=== PATIENT | female | born 1960 | race Two or more races ===

== ENCOUNTER 2020-05-26 03:47 | Emergency (ER) | payer SELFPAY ==
[~2020-05-26] VITALS: Ht 154.9 cm; Wt 63.0 kg
[2020-05-26] MEDS ORDERED: IBUPROFEN 600MG TABLET PO STA (04:54)
[2020-05-26 05:45] LABS: BASOPHILS % 0.5 % (0.0-2.0); EOSINOPHILS % 0.4 % (0.0-5.0); HEMATOCRIT. 44.4 % (36.0-48.0); HEMOGLOBIN. 14.8 g/dL (12.0-16.0); LYMPHOCYTES % 22.7 % (20.0-50.0); MEAN CORPUSCULAR HEMOGLOBIN 27.7 pg (28.0-32.0); MEAN CORPUSCULAR VOLUME 83.1 fL (81.0-99.0); MEAN PLATELET VOLUME 7.5 fl (7.4-10.4); MONOCYTES % 7.2 % (2.0-8.0); NEUTROPHILS % 69.2 % (40.0-76.0); PLATELET 260 x1000/uL (130-400); RED BLOOD CELL COUNT 5.34 mill/uL (4.2-5.4); RED CELL DISTRIBUTION WIDTH 14.8 % (11.6-14.6)
[2020-05-26 05:51] LABS: CHLORIDE 110 mEq/L (98-107)
[2020-05-26 08:13] VITALS: BP 140/77
== END 2020-05-26 08:15 | disposition home or self-care (01) ==
LOC: ER 04:00
DX: S20.02XA Contusion of left breast, initial encounter (principal); V89.2XXA Person injured in unspecified motor-vehicle accident, traffic, initial encounter; Y93.89 Activity, other specified; Y92.89 Other specified places as the place of occurrence of the external cause; Y99.8 Other external cause status
CPT/HCPCS: 36415; 71045; 80053; 84484; 85025; 93005; 99285